=== PATIENT | male | born 1930 | race Caucasian/White ===

== ENCOUNTER → 2017-05-03 | Outpatient (CLI) | payer OTHER, MEDICARE | LOC: GIMAGING 14:09 | PROVIDERS: ATTEND Family Medicine | DX: M16.0 Bilateral primary osteoarthritis of hip (principal); M51.36 Other intervertebral disc degeneration, lumbar region; M47.816 Spondylosis without myelopathy or radiculopathy, lumbar region | CPT/HCPCS: 72170-PO ==

== ENCOUNTER → 2017-05-05 | Outpatient (CLI) | payer OTHER, MEDICARE | LOC: FIMAGING 18:42 | PROVIDERS: ATTEND Family Medicine | DX: M25.552 Pain in left hip (principal); M54.5 Low back pain; M48.061 Spinal stenosis, lumbar region without neurogenic claudication; M51.36 Other intervertebral disc degeneration, lumbar region; R93.7 Abnormal findings on diagnostic imaging of other parts of musculoskeletal system ==

== ENCOUNTER → 2017-05-19 | Outpatient (CLI) | payer OTHER, MEDICARE ==
[~2017-05-19] MED LIST: GADOBUTROL 10 ML VIAL IVP ONE
== END ==
LOC: FIMAGING 18:46
PROVIDERS: ATTEND Neurological Surgery
DX: M54.5 Low back pain (principal)
CPT/HCPCS: 72149; A9585

== ENCOUNTER 2018-05-10 12:35 | Emergency (ER) | payer OTHER, MEDICARE ==
[2018-05-10 15:16] LABS: PLATELET COUNT 276 10^3/uL (150-400)
--- NOTE | 2018-05-10 15:58 | EDPHY ---
H & P Time Seen by Provider: 05/10/18 14:46 HPI/ROS: HPI Blood in urine. 87-year-old male by private vehicle. This patient reports that 2-3 days ago he started having increased frequency with urination. This morning he has had hematuria with urinary frequency and dysuria. He has not had a fever. He denies back pain. There is no history of trauma. No other complaints. ROS: Constitutional: No fever, no chills. No weakness. Eyes: No discharge. No changes in vision. ENT: No sore throat. No nasal congestion or rhinorrhea. Respiratory: No cough. No shortness of breath. Cardiac: No chest pain, no palpitations. Gastrointestinal: No abdominal pain, no vomiting, no diarrhea. Genitourinary: As above. Musculoskeletal: No back pain. No neck pain. No myalgias or arthralgias. Skin: No rashes. Neurological: No headache. No focal weakness or altered sensation. Past medical history: Prostate cancer, he was managed for this down in [place]. He last saw urologist in 2007. Parkinson's disease. Social history: He is here by himself. Nonsmoker. No alcohol. Physical Exam: General Appearance: Alert, no distress. This patient is responding to questions appropriately and in full sentences. This patient appears well- hydrated and well-nourished. Respiratory: There are no retractions, lungs are clear to auscultation with good air movement bilaterally. Cardiovascular: Regular rate and rhythm. No murmur. Gastrointestinal: Abdomen is soft and nontender, no suprapubic tenderness on palpation or distension, no masses, bowel sounds normal. No focal tenderness at McBurney's point. No Donahue sign. : Circumcised penis. Small amount of dried blood around the meatus. Testicular atrophy. Otherwise unremarkable exam. Neurological: Motor sensory function is grossly intact. Cranial nerves are normal. Gait is normal. Skin: Warm and dry, no rashes. Musculoskeletal: No CVA tenderness bilaterally. Extremities are symmetrical. All joints range without pain or impingement. Psychiatric: No agitation. No depression. Database: EKG: Imaging: Procedures: Emergency department course: Triage vital signs reviewed. Is moderately hypertensive. Vital signs are otherwise normal. IV placed. Patient given 500 cc of IV normal saline over an hour. 4:40 p.m., spoke with on-call urologist Dr. Carter. Case discussed with him in detail. He feels the patient can go home from the emergency department. He has seen Dr. Gallardo in the past. He has had radiation therapy in the past as well as seats for treatment of his prostate cancer. Dr. 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 There is no indication for antibiotics at this time. The patient will be seen by Urology in their office is tomorrow. I discussed this plan with the patient. He does feel comfortable going home. He has been instructed to stay well hydrated. He understands his follow-up plan. Return to emergency department precautions have been thoroughly reviewed with him. All of his questions were answered. He was discharged from the emergency department in good condition. Differential Diagnosis: The differential diagnosis on this patient includes but is not limited to cystitis, prostatitis, malignancy. This represents a partial list of diagnoses considered. These considerations are based on history, physical exam, past history, reassessment and diagnostic testing. Smoking Status: Never smoked Constitutional: Initial Vital Signs Temperature (C) 36.7 C 05/10/18 12:41 Heart Rate 82 05/10/18 12:41 Respiratory Rate 18 05/10/18 12:41 Blood Pressure 160/85 H 05/10/18 12:41 O2 Sat (%) 97 05/10/18 12:41 O2 Delivery Mode Room Air Allergies/Adverse Reactions: No Allergies [NKDA] Allergy (Verified 05/10/18 12:40) Home Medications: Medication Instructions Recorded Sinemet 10/100 MG (*) 05/10/18 Medical Decision Making - Data Points Laboratory Results: Laboratory Results 05/10/18 14:56 05/10/18 16:42 Microbiology Results: MICROBIOLOGY 05/10/18 12:45 Unspecified Urine Culture - Final Three [place] Types Enterococcus Species Departure - Departure Disposition: Home, Routine, Self-Care Clinical Impression: Hematuria, Cystitis Condition: Good Instructions: Hematuria (ED) Additional Instructions: Read and follow provided instructions. Follow-up with Urology, Dr. Carter or 1 of his partners tomorrow in their office for re-evaluation. You are to call their office at 9:00 a.m. Tomorrow morning for appointment time. I spoke with Dr. Carter in the emergency department this evening. He is aware you will be calling and need to be seen tomorrow. Take your medication as prescribed. Keep yourself well hydrated. Return to the emergency department for worsening pain and inability to urinate, persistent bleeding or other serious concerns. Referrals: Cindy Carter MD [Medical Doctor] - As per Instructions
[2018-05-10 16:47] VITALS: BP 181/97
== END 2018-05-10 18:03 | disposition home or self-care (01) ==
DX: N30.91 Cystitis, unspecified with hematuria (principal)